=== PATIENT | female | born 1980 | race Hispanic/Latino ===

== ENCOUNTER 2023-02-04 20:28 | Emergency (ER) | payer BC ==
[2023-02-04 21:17] LABS: Absolute Lymphocytes (CBC) 3.1 K/uL (0.7-4.9); Hematocrit 38.8 % (36.0-45.0); Lymphocytes % 26.1 % (15.3-44.8); MCV 86.5 fL (80-100); MPV 8.9 fL (7.6-11.3); Platelets 271 thou/uL (152-406); RBC Red Blood Cell Count 4.49 M/uL (3.86-4.86)
--- NOTE | 2023-02-04 21:27 | RAD REPORT ---
[facility] 9:12 pm CLINICAL HISTORY: CHEST PAIN COMPARISON: No comparisons TECHNIQUE: Portable AP view of the chest. FINDINGS: The lungs are clear. No pneumothorax or effusion. The cardiomediastinal contours are unre markable. IMPRESSION: No acute cardiopulmonary process.
[2023-02-04 21:48] LABS: Potassium 3.7 mEq/L (3.5-5.1); Troponin High Sensitivity 3.1 pg/mL (<58.9)
--- NOTE | 2023-02-04 22:07 | ER ---
Nurse's Notes [facility] Name: Kemi Banerjee Age: 42 yrs Sex: Female : 1980 Arrival Date: 02/04/2023 Time: 20:28 Bed 4 Private MD: Diagnosis: Chest pain, unspecified;Anxiety disorder, unspecified Presentation: 02/04 20:55 Chief complaint: Patient states: SUBSTERNAL CHEST TIGHTNESS x3 DAYS. Coronavirus bp screen: At this time, the client does not indicate any symptoms associated with coronavirus-19. Ebola Screen: No symptoms or risks identified at this time. Initial Sepsis Screen: Does the patient meet any 2 criteria? No. Patient's initial sepsis screen is negative. Does the patient have a suspected source of infection? No. Patient's initial sepsis screen is negative. Risk Assessment: Do you want to hurt yourself or someone else? Patient reports no desire to harm self or others. Onset of symptoms is unknown. 20:55 Method Of Arrival: Ambulatory bp 20:55 Acuity: SALOME 3 bp Triage Assessment: 20:55 General: Appears in no apparent distress. obese, Behavior is calm, cooperative, bp appropriate for age. Pain: Complains of pain in chest. 20:55 Cardiovascular: Rhythm is sinus rhythm. bp Historical: - Allergies: 21:40 No Known Allergies; bp - Home Meds: 21:40 candesartan oral [Active]; bp - PMHx: 21:40 Asthma; Hypertensive disorder; bp - Immunization history:: Adult Immunizations up to date. - Social history:: Smoking status: Patient denies any tobacco usage or history of. Screenin:55 [facility] ED Fall Risk Assessment (Adult) History of falling in the last 3 months, bp including since admission No falls in past 3 months (0 pts). Abuse screen: Denies threats or abuse. Denies injuries from another. Nutritional screening: No deficits noted. Tuberculosis screening: No symptoms or risk factors identified. Assessment: 20:55 General: SEE TRIAGE NOTE. bp 22:17 Reassessment: Patient appears in no apparent distress at this time. No changes from lg3 previously documented assessment. Patient and/or family updated on plan of care and expected duration. Pain level reassessed. Patient is alert, oriented x 3, equal unlabored respirations, skin warm/dry/pink. Patient states symptoms have improved. Vital Signs: 20:55 BP 113 / 59; Pulse 72; Resp 22; Temp 98.6; Pulse Ox 100% ; bp 22:17 BP 131 / 68; Pulse 79; Resp 16 S; Pulse Ox 100% on R/A; lg3 ED Course: 20:33 Patient arrived in ED. gm2 20:33 Jayy Moctezuma MD is Attending Physician. ec2 20:46 Jayy Moctezuma MD is Attending Physician. ec2 20:55 Arm band placed on. bp 20:55 Patient has correct armband on for positive identification. Bed in low position. Call bp light in reach. Side rails up X2. Adult w/ patient. Provided Education on: N/A. Client placed on continuous cardiac and pulse oximetry monitoring. NIBP monitoring applied. 20:55 Inserted saline lock: 22 gauge in right forearm, using aseptic technique. Blood bp collected. Patient maintains SpO2 saturation greater than 95% on room air. 20:58 Guilherme Forde, RN is Primary Nurse. bp 21:14 XRAY Chest (1 view) In Process Unspecified. EDMS 21:39 Triage completed. bp 22:18 No provider procedures requiring assistance completed. IV discontinued, intact, lg3 bleeding controlled, No redness/swelling at site. Pressure dressing applied. Administered Medications: No medications were administered Medication: 20:55 VIS not applicable for this client. bp Outcome: 22:06 Discharge ordered by . ec2 22:18 Discharged to home ambulatory, lg3 22:18 Condition: stable 22:18 Discharge instructions given to patient, Instructed on discharge instructions, follow up and referral plans. Demonstrated understanding of instructions, follow-up care, 22:18 Patient left the ED. lg3 Signatures: Dispatcher [employer] EDCT Guilherme Forde, RN RN Rena Palma RN RN lg3 Jayy Moctezuma MD MD ec2 Eneida Magallanes 2
--- NOTE | 2023-02-04 22:07 | EDPHYS ---
Physician Documentation [facility] Name: Kemi Banerjee Age: 42 yrs Sex: Female : 1980 Arrival Date: 02/04/2023 Time: 20:28 Bed 4 Private MD: ED Physician Jayy Moctezuma HPI: 02/04 20:57 This 42 yrs old Female presents to ER via Unassigned with complaints of Chest ec2 Tightness. 20:57 Patient arrives today due to concern for chest tightness. Patient reports that she is ec2 been having chest tightness for the past several days. Patient reports no specific alleviating or exacerbating factors, states she has taken some Tylenol with some improvement in her symptoms. Patient reports no significant difficulty breathing. Patient does report a history of asthma however does not feel short of breath. Patient states that she does not have an exertional component denies any specific cardiac disease, does report a history of hypertension.. Historical: - Allergies: 21:40 No Known Allergies; bp - Home Meds: 21:40 candesartan oral [Active]; bp - PMHx: 21:40 Asthma; Hypertensive disorder; bp - Immunization history:: Adult Immunizations up to date. - Social history:: Smoking status: Patient denies any tobacco usage or history of. ROS: 20:57 Constitutional: chest pain ec2 Exam: 20:57 Constitutional: GEN: NAD Head: atraumatic Eyes: EOMI Ears: External ears are ec2 normal. CV: regular rate LUNGS: no respiratory distress, no wheezes, no rales, no rhonchi ABD: non-distended SKIN: no evidence of rashes MSK: no evidence of trauma NEURO: moves all extremities equally psych: Anxious individual. Vital Signs: 20:55 BP 113 / 59; Pulse 72; Resp 22; Temp 98.6; Pulse Ox 100% ; bp 22:17 BP 131 / 68; Pulse 79; Resp 16 S; Pulse Ox 100% on R/A; lg3 MDM: 20:33 Patient medically screened. ec2 20:33 Patient medically screened. ec2 20:57 ED course: Patient arrives today due to concern for chest tightness. Examination ec2 remarkable for well-appearing nontoxic dividual is otherwise in no acute distress with general well appearance. Will obtain lab work, EKG, chest x-ray for further assessment of the patient complaint. Currently considering process such as ACS, pleurisy, suspicion for PE, less risk for dissection, low suspicion for asthma exacerbation. Additionally considered anxiety.. 21:08 ED course: EKG independently reviewed and interpreted by me, shows normal sinus rhythm, ec2 rate of 80, no acute ST segment elevations, nonconcerning intervals.. 21:29 ED course: CBC is reassuring. Chest x-ray independently reviewed and interpreted by me, ec2 shows no acute intrathoracic process. . 22:00 ED course: Patient's lab work is remarkable for reassuring metabolic profile, troponin ec2 that is within normal ranges. . 22:05 ED course: On reassessment patient is well-appearing and in no acute distress. ec2 reports that patient had recently lost her mother and is concerned about anxiety. I discussed possible anxiety as well as further testing. Patient ultimately is a low risk individual who can follow-up outpatient and is agreeable. Patient discharged home, return precautions given.. 22:07 Data reviewed: vital signs. ec2 02/04 20:57 Order name: Basic Metabolic Panel; Complete Time: 22:00 ec2 02/04 20:57 Order name: CBC with Diff; Complete Time: 21:28 ec2 02/04 20:57 Order name: Troponin HS; Complete Time: 22:00 ec2 02/04 20:57 Order name: XRAY Chest (1 view); Complete Time: 21:28 ec2 02/04 20:57 Order name: EKG; Complete Time: 20:57 ec2 02/04 20:57 Order name: Cardiac monitoring; Complete Time: :23 ec2 02/04 20:57 Order name: EKG - Nurse/Tech; Complete Time: 21:06 ec2 02/04 20:57 Order name: IV Saline Lock; Complete Time: : ec2 02/04 20:57 Order name: Labs collected and sent; Complete Time: : ec2 02/04 20:57 Order name: O2 Per Protocol; Complete Time: : ec2 02/04 20:57 Order name: O2 Sat Monitoring; Complete Time: 21:22 ec2 Administered Medications: No medications were administered Disposition Summary: 02/04/23 22:06 Discharge Ordered Notes: Location: Home ec2 Condition: Stable ec2 Diagnosis - Chest pain, unspecified ec2 - Anxiety disorder, unspecified ec2 Discharge Instructions: - Discharge Summary Sheet ec2 - Managing Anxiety, Adult ec2 Forms: - Medication Reconciliation Form ec2 - Thank You Letter ec2 - Antibiotic Education ec2 - Prescription Opioid Use ec2 - Patient Portal Instructions ec2 - Leadership Thank You Letter ec2 Signatures: Dispatcher [employer] Guilherme Abbott RN RN Jayy Whitaker MD MD ec2 Corrections: (The following items were deleted from the chart) 20:59 20:57 Constitutional: GEN: NAD Head: atraumatic Eyes: EOMI Ears: External ears are ec2 normal. CV: regular rate LUNGS: no respiratory distress, no wheezes, no rales, no rhonchi ABD: non-distended SKIN: no evidence of rashes MSK: no evidence of trauma NEURO: moves all extremities equally ec2 21:01 21:00 Patient medically screened. ec2 ec2
[2023-02-05 00:31] VITALS: TEMP 98.6; O2SAT 100
[2023-02-05 00:32] VITALS: BP 131/68
--- NOTE | 2023-02-05 13:37 | EKG ---
Test Date: 2023-02-04 Test Time: 21:04:18 Sonogram Technician: ALP MEASUREMENT RESULTS: Intervals: Rate: 80 IA: 150 QRSD: 78 QT: 384 QTc: 442 [place]: P: 70 IA: 150 QRS: 23 T: 53 INTERPRETIVE STATEMENTS: Normal sinus rhythm Normal ECG No previous ECG available for comparison Electronically Signed On 02-05-23 13:36:10 CDT by Te Flowers
== END 2023-02-04 22:18 | disposition home or self-care (01) ==
LOC: ER 20:28
DX: R07.89 Other chest pain (principal); F41.9 Anxiety disorder, unspecified; I10 Essential (primary) hypertension; J45.909 Unspecified asthma, uncomplicated
CPT/HCPCS: 36415; 71045; 80048; 84484; 85025; 93005